=== PATIENT | female | born 1955 | race Caucasian/White ===

== ENCOUNTER → 2022-12-02 15:35 | Outpatient (REF) | payer BC, SELFPAY ==
--- NOTE | 2022-12-02 15:40 | CA_ITS ---
Transthoracic Echocardiogram Patient (Last, First, Middle): Joyce Pearles, Gender: Female Date of : 1955 Age: 67 Procedure Date: 12/02/2022 Procedure Type: Transthoracic Echocardiogram Location: [place] Height: 157.48 cm Weight: 68.04 kg BSA: 1.69 m2 Heart Rate: bpm BP: 122 / 66 mmHg Dairy Cattle Farm Manager: MARY Referring MD: Joseluis Velasquez RECRUITING ASSOCIATE Rib Puller: Efrain Martin MD Symptoms: R06.09 WEISS Study Quality: Good ECG Rhythm: Sinus Conclusions: - 1. Normal LV systolic function with grade 1 diastolic dysfunction 2. Normal cardiac valvular Doppler 3. Normal RV systolic pressure 4. Mildly dilated ascending aorta at 4 cm 5. No gross pericardial effusion Findings Left Ventricle Normal left ventricular size, thickness, and systolic function. The visually estimated ejection fraction is between 60-65%. Spectral Doppler is indicative of an impaired relaxation filling pattern. E/E prime ratio is <8, consistent with normal filling pressures. Evidence suggests grade I (mild) diastolic dysfunction. Peak GLS is -19.8%, which is within normal limits. Right Ventricle Normal right ventricular cavity size and systolic function. Atria Both atria are normal in size. There is no evidence of interatrial shunt. Aortic Valve There is mild thickening of the aortic valve. There is no aortic valve stenosis. There is no aortic valve regurgitation. Mitral Valve Normal mitral valve structure and function. There is trace mitral valve regurgitation. There is no mitral valve stenosis. Pulmonic Valve The pulmonic valve is likely normal. There is trace to mild pulmonic valve regurgitation. Tricuspid Valve Normal tricuspid valve structure. There is mild tricuspid valve regurgitation. The right ventricular systolic pressure is normal. The right ventricular systolic pressure is 29 mmHg. Normal right atrial pressure. There is no evidence of pulmonary hypertension. Great Vessels There is mild dilatation of the ascending aorta measuring 4.00 cm. The visualized portions of the pulmonary artery and branches are normal. Venous The inferior vena cava is normal in size and collapses greater than 50% with inspiration. Pericardium/Pleural There is no evidence of pericardial effusion. Prior Study Comparison No prior study available for comparison. Measurements 2D Linear Measurements IVSd: 1.14 0.6-0.9/0.6-1.0 cm LVIDd: 3.98 3.9-5.3/4.2-5.9 cm LVIDd Index: 2.36 2.4-3.2/2.2-3.1 cm/m2 LVIDs: 2.57 2.0-3.6 cm LVPWd: 1.13 0.7-1.1 cm Ao Root: 3.00 2.1-3.5 cm LA Diam: 3.60 2.7-3.8/3.0-4.0 cm LAIDs Index: 2.13 1.5-2.3 cm/m2 LV Mass: 188.34 67-162/88-224 g LV Mass Index: 111.44 43-95/49-115 g/m2 LVOT Diam: 2.20 3.0+(-)1.3 cm 2D Systolic Function EF 4C: 62.30 >55% EF 2C: 63.20 >55% EF BiP: 63.00 >55% Mitral Valve MV Pk E: 0.63 MV PK A: 0.80 MV Decel Time: 241.00 E/A: 0.80 E'Lateral: 8.59 E'Medial: 6.74 E/E' Med: 9.30 E/E' Lat: 7.30 PHT: 71.00 MVA PHT: 3.10 Decel [place]: 2.60 Aortic Valve AoV Pk Cb: 1.38 AoV Mn Cb: 1.01 AoV VTI: 0.39 AoV Pk Grad: 8.00 Aov Mn Grad: 5.00 CORAL Cont.VTI: 2.29 LVOT LVOT Pk Cb: 1.03 LVOT Mn Cb: 0.66 LVOT VTI: 0.24 LVOT Pk Grad: 4.00 LVOT Mn Grad: 2.00 LVOT Diam: 2.20 LVOT Area: 3.80 Diastolic Function MV Pk E: 0.63 MV Pk A: 0.80 E/A: 0.80 E'Medial: 6.74 E/E' Med: 9.30 E' Laterial: 8.59 E/E' Lat: 7.30 Right Ventricle TAPSE (mm): 26.00 TVS' Cb: 14.00 Tricuspid Valve TR Pk Cb: 2.54 TR Pk Grad: 26.00 RA Press: 3.00 RVSP: 29.00 Great Vessels Aorta Ao Root-2D: 3.00 2.0-3.7 cm Ao Asc: 4.00 2.1-3.4 cm Pulmonary Valve PV Pk Cb: 0.92 Peak PV Grad: 3.00 Updated in Other Vendor System with Status of Final Efrain Martin MD electronically signed on 12/03/2022 9:25:30 AM with status of Final
== END ==
LOC: HO.CARD 15:35
PROVIDERS: PCP Nurse Practitioner Primary Care; Visit Provider Nurse Practitioner Primary Care
DX: R06.09 Other forms of dyspnea (principal)
CPT/HCPCS: 93306; 93356

== ENCOUNTER → 2025-06-18 10:52 | Outpatient (REF) | payer MEDICARE, BC, SELFPAY ==
--- NOTE | 2025-06-18 10:56 | CA_ITS ---
Transthoracic Echocardiogram Patient (Last, First, Middle): Joyce Perales, Gender: Female Date of : 1955 Age: 70 Procedure Date: 06/18/2025 Procedure Type: Transthoracic Echocardiogram Location: [place] Height: 160.02 cm Weight: 70.31 kg BSA: 1.74 m2 Heart Rate: 54 bpm BP: 145 / 90 mmHg Astronautical Engineer: KRISTINE Perez MD: Joseluis Velasquez CARCASS SPLITTER Administrative Receptionist: Efrain Martin MD Symptoms: HTN Study Quality: Adequate ECG Rhythm: Bradycardia Conclusions: - 1. Normal LV ejection fraction at 60 65% with grade 1 diastolic dysfunction 2. Mildly dilated left atrium 3. Normal cardiac valvular Dopplers 4. Mildly dilated ascending aorta at 4.2 cm 5. Normal RV systolic pressure 6. No gross pericardial effusion Findings Left Ventricle Normal left ventricular size, thickness, and systolic function. The visually estimated ejection fraction is between 60-65%. Spectral Doppler is indicative of an impaired relaxation filling pattern. E/E prime ratio is <8, consistent with normal filling pressures. Evidence suggests grade I (mild) diastolic dysfunction. Right Ventricle Normal right ventricular cavity size and systolic function. Atria The left atrium is mildly dilated. There is no evidence of interatrial shunt. The right atrium is normal in size. Aortic Valve Normal aortic valve structure and function. There is no aortic valve stenosis. There is no aortic valve regurgitation. Mitral Valve Normal mitral valve structure and function. There is trace mitral valve regurgitation. There is no mitral valve stenosis. Pulmonic Valve The pulmonic valve is likely normal. There is trace to mild pulmonic valve regurgitation. Tricuspid Valve Normal tricuspid valve structure. There is trace tricuspid valve regurgitation. The right ventricular systolic pressure is not calculated. The right ventricular systolic pressure is 21 mmHg. Normal right atrial pressure. There is no evidence of pulmonary hypertension. Great Vessels The pulmonary artery was not well visualized. There is mild dilatation of the ascending aorta measuring 4.20 cm. Venous The inferior vena cava is normal in size and collapses greater than 50% with inspiration. Pericardium/Pleural There is no evidence of pericardial effusion. Measurements 2D Linear Measurements IVSd: 1.03 0.6-0.9/0.6-1.0 cm LVIDd: 4.55 3.9-5.3/4.2-5.9 cm LVIDd Index: 2.61 2.4-3.2/2.2-3.1 cm/m2 LVIDs: 2.48 2.0-3.6 cm LVPWd: 1.11 0.7-1.1 cm LA Diam: 3.60 2.7-3.8/3.0-4.0 cm LAIDs Index: 2.07 1.5-2.3 cm/m2 LV Mass: 213.43 67-162/88-224 g LV Mass Index: 122.66 43-95/49-115 g/m2 LVOT Diam: 2.00 3.0+(-)1.3 cm 2D Systolic Function EF 4C: 61.20 >55% EF 2C: 68.20 >55% EF BiP: 63.70 >55% Mitral Valve MV Pk E: 0.50 MV PK A: 0.70 MV Decel Time: 349.00 E/A: 0.70 E'Lateral: 8.05 E'Medial: 5.22 E/E' Med: 9.60 E/E' Lat: 6.20 PHT: 102.00 MVA PHT: 2.16 Decel [place]: 1.44 Aortic Valve AoV Pk Cb: 1.45 AoV Mn Cb: 1.00 AoV VTI: 0.32 AoV Pk Grad: 8.00 Aov Mn Grad: 5.00 CORAL Cont.VTI: 2.17 LVOT LVOT Pk Cb: 1.04 LVOT Mn Cb: 0.68 LVOT VTI: 0.22 LVOT Pk Grad: 4.00 LVOT Mn Grad: 2.00 LVOT Diam: 2.00 LVOT Area: 3.14 Diastolic Function MV Pk E: 0.50 MV Pk A: 0.70 E/A: 0.70 E'Medial: 5.22 E/E' Med: 9.60 E' Laterial: 8.05 E/E' Lat: 6.20 Right Ventricle TAPSE (mm): 21.90 TVS' Cb: 11.20 Tricuspid Valve TR Pk Cb: 2.10 TR Pk Grad: 18.00 RA Press: 3.00 RVSP: 21.00 Great Vessels Aorta Sinus of Valsalva: 3.10 2.0-3.5 cm Ao Asc: 4.20 2.1-3.4 cm Ao Arch: 3.60 Pulmonary Veins Pulm Vein S/D 1.50 Pulmonary Valve PV Pk Cb: 0.86 Peak PV Grad: 3.00 Updated in Other Vendor System with Status of Final Efrain Martin MD electronically signed on 06/19/2025 11:03:08 AM with status of Final
--- OUTSIDE RECORDS SUMMARY | 2025-06-18 13:01 | XMS_ITS | Encounter Summary ---
Author Organization [facility] Address [address] [place] [address] Phone Care Team Providers Care Air Gun Operator Name Role Phone Maddi Wang MD Unavailable [phone] Loraine Bradford MD Unavailable [phone] Terrell Guerra NP Unavailable Alana Schwartz MD Unavailable [phone] Joaquim Godoy MD Unavailable [phone] Bulmaro Scott MD Unavailable [phone] Joseluis Velasquez [facility] Primary Care Provider Encounter Details Date Type Department Care Team (Late Contact Info) Description 09/27/2018 Ancillary Orders [facility],Outside Imaging [address] [place], [place] [id number] System, Provider Not In, [place] [address] Social History Tobacco Use Types Packs/Day Years Used Date Smoking Tobacco: Never Smokeless Tobacco: Never Alcohol Use Standard Drinks/Week Comments Yes 0 (1 standard drink = 0.6 oz pur e alcohol) Occasionaly Comments No Sex and Gender Information Value Date Recorded Sex Assigned at Female 03/19/2021 4:05 PM EDT Legal Sex Female 9:52 PM EDT Gender Identity Not on file Sexual Orientation Straight 03/19/2021 4: 05 PM EDT Occupation Industry Job Start Date Job End Date [place] Not on file Not on file Not on file documented as of this encounter Plan of Treatment Upcoming Encounters Date Type Department Care Team (Late Contact Info) Description 11/13/2025 8:30 AM EDT Office Visit [facility] [address] 3rd Floor, [address] [place] [address] Sanjay Christy DO [address] [place] [address] [email or web address] documented as of this encounter Results * Mammogram Outside (No Interpretation) (07/16/2015 12:00 AM EST) Narrative SYSTEMGENERATED, DOCUMENTATION - 09/27/2018 9:11 AM EST This study is for PACS storage only and not for interpretation. us Provider Not In System PhD IMG OUTSIDE IMAGING W /OUT INTERPRETATION Final Result documented in this encounter Visit Diagnoses Not on filedocumented in this encounter Additional Health Concerns Infection Onset Date Last Indicated Resolved Time CoV-Exposed Comment:Recent close contact documented in the COVID-19 PCR/PRO order 03/28/2021 04/07/2021 04/12/2021 1:24 AM E DT Assessment Noted Time PHQ-2 Depression Total Score: 0 07/21/20 18 11:33 AM EST documented as of this encounter Care Teams Air Gun Operator Relationship Specialty Start Date End Date Joseluis Velasquez CNP [address] [place] [address], [address] [place] [address] PCP - General Family Medicine 07/21/18 Maddi Wang MD [address] [facility], [address] [place] [address] Historical LMR Provider 05/29/17 Loraine Bradford MD [address] [place] [address] [email or web address] Historical LMR Provider 05/29/17 08/16/21 Terrell Guerra NP [address] [place] [address] 2_[place] [address] [email or web address] Historical LMR Provider 05/29/17 08/16/21 Alana Schwartz MD [address] [place] [address], 2nd [place] [address] [email or web address] Historical LMR Provider 05/29/17 Joaquim Godoy MD [address] [facility], [address] [place] [address] Historical LMR Provider 05/29/17 08/16/21 Bulmaro Scott MD [address] [place] [address], [address] [place] [address] [email or web address] Historical LMR Provider 05/29/17 3 documented as of this encounter Additional Source Comments The information contained in this document represents components of the legal health record. It is not the complete legal health record.[facility]
--- OUTSIDE RECORDS SUMMARY | 2025-06-18 13:01 | XMS_ITS | Encounter Summary ---
Author Organization [facility] Address [address] [place] [address] Phone Care Team Providers Care Counter Pocket Trimmer Name Role Phone Maddi Wang MD Unavailable [phone] Loraine Bradford MD Unavailable [phone] Terrell Guerra NP Unavailable [phone] Alana Schwartz MD Unavailable [phone] Joaquim Godoy MD Unavailable [phone] Bulmaro Scott MD Unavailable [phone] Joseluis Velasquez LEAD ETL DEVELOPER Primary Care Provider Encounter Details Date Type Department Care Team (Latest Contact Info) Description 06/16/2019 Transcribe Orders [facility]le[facility] [address] [place], [place] [id number] Joseluis Velasquez, LEAD ETL DEVELOPER [address] [facility], [address] [place] [address] Annual physical exam; Essential hypertension Social History Tobacco Use Types Packs/Day Years [...] Encounters Date Type Department Care Team (Late st Contact Info) Description 11/13/2025 8:30 AM EDT Office Visit [facility] [address] [facility] [address] [facility] 3rd Floor, [address] [place] [address] Sanjay Christy, [address] [facility] [address] [place] [address] [email or web address] documented as of this encounter Procedures Procedure Name Priority Date/Time Associated Diagnosis Comments COMPREHENSIVE METABOLIC PANEL (CMP) Routine 06/16/2019 7:24 AM EST Annual physical exam Essential hypertension TSH WITH REFLEX Routine 06/16/2019 7:24 AM EST Annual physical exam Essential hypertension HC BLOOD COUNT COMPLETE AUTO&AUTO DIFRNTL WBC Routine 06/16/2019 7:24 AM EST Annual physical exam Essential hypertension LIPID PANEL Routine 06/16/2019 7:24 AM EST Annual physical exam Essential hypertension documented in this encounter Results * (ABNORMAL) CBC and differential (06/16/2019 7:24 AM EST) WBC 4.75 3.40 - 11.20 K/uL [facility] RBC 4.88(H) 3.80 - 4.80 M/uL [facility] HGB 14.8 12.0 - 15.0 g/dL [facility] HCT 43.6 36.0 - 46.0 % [facility] PLT 291 130 - 400 K/uL [facility] MCV 89.3 79.0 - 98.0 fL [facility] MCH 30.3 27.0 - 34.8 pg [facility] MCHC 33.9 31.5 - 36.0 g/dL [facility] RDW 12.2 10.8 - 14.6 % [facility] MPV 10.2 9.4 - 12.4 fl [facility] NRBC 0.00 0.00 /100 WBCs [facility] ABSOLUTE NRBC 0.00 0.00 K/uL [facility] DIFF METHOD Auto [facility] NEUTS 45.5 45.30 - 77.70 % [facility] LYMPHS 39.8(H) 12.30 - 39.70 % [facility] MONOS 10.7 4.10 - 12.80 % [facility] EOS 2.7 0 - 7.2 % [facility] BASOS 1.1 0 - 2.80 % [facility] Granulocytes, immature (%) 0.2 0.0 - 0.9 % [facility] ABSOLUTE NEUTS 2.16 1.40 - 7.70 K/uL [facility] ABSOLUTE LYMPHS 1.89 0.60 - 3.20 K/uL [facility] ABSOLUTE MONOS 0.51 0.11 - 0.59 K/uL [facility] ABSOLUTE EOS 0.13 0.01 - 0.50 K/uL [facility] ABSOLUTE BASOS 0.05 0.00 - 0.08 K/uL [facility] Granulocytes, immature 0.01 0.00 - 0.05 K/uL [facility] Blood 06/16/2019 7:24 AM EST 06/16/2019 7:25 AM EST us Joseluis Velasquez LEAD ETL DEVELOPER LAB BLOOD BKR ORDERABL ES Final Result [facility] [address] [place] [address] * (ABNORMAL) Comprehensive metabolic panel (06/16/2019 7:24 AM EST) SODIUM 140 133 - 146 mmol/L [facility] POTASSIUM 4.3 3.3 - 5.1 mmol/L [facility] CHLORIDE 98 96 - 108 mmol/L [facility] CO2 27 21 - 35 mmol/L [facility] BUN 20(H) 6 - 19 mg/dL [facility] CREATININE 0.60 0.5 - 1.5 mg/dL [facility] GLUCOSE 83 70 - 99 mg/dL [facility] ALBUMIN 4.8 3.9 - 4.8 g/dL [facility] TOTAL PROTEIN 8.1(H) 6.5 - 8.0 g/dL [facility] CALCIUM 10.5(H) 8.4 - 10.3 mg/dL [facility] ALKALINE PHOSPHATASE 75 39 - 117 U/L [facility] TOTAL BILIRUBIN 0.4 0.0 - 1.2 mg/dL [facility] AST 25 0 - 37 U/L [facility] ALT 17 0 - 40 U/L [facility] GLOBULIN 3.3 1 - 4.8 g/dL [facility] EGFR 98 >59 mL/min/1.7 3m2 [facility] Comment:If patient is black, multiply result by 1.159. Estimated glomerular filtration rate calculated using the CKD-EPI equation. ANION GAP 19 10 - 20 mmol/L [facility] Blood 06/16/2019 7:24 AM EST 06/16/2019 7:25 AM EST us Joseluis Velasquez LEAD ETL DEVELOPER LAB BLOOD BKR ORDERABL ES Final Result [facility] [address] [place] [address] * (ABNORMAL) Lipid panel (06/16/2019 7:24 AM EST) HDL 61 mg/dL [facility] Comment: Interpretation <40 mg/dL: Low HDL cholesterol (major risk factor for CHD) Greater than or equal to 60 mg/dL: High HDL cholesterol ( negative risk factor for CHD) HDL - cholesterol is affected by a number of factors, e.g. smoking, excerise, hormones, sex and age. CHOLESTEROL 191 0 - 240 mg/dL [facility] TRIGLYCERIDES 69 30 - 160 mg/dL [facility] LDL 116 50 - 129 mg/dL [facility] Comment: LDL levels in terms of risk for coronary heart disease: <100 mg/dL: Optimal 100-129 mg/dL: Near or above optimal 130-159 mg/dL: Borderline high 160-189 mg/dL: High >190 mg/dL: Very High CARDIAC RISK RATIO 3.1(L) 3.3 - 4.4 C [facility] Blood 06/16/2019 7:24 AM EST 06/16/2019 7:25 AM EST us Joseluis Velasquez LEAD ETL DEVELOPER LAB BLOOD BKR ORDERABL ES Final Result Performing Organization Address [facility] Co de Phone Number [address] [address] * TSH with reflex (06/16/2019 7:24 AM EST) TSH 2.22 0.27 - 4.20 uIU/mL [facility] Blood 06/16/2019 7:24 AM EST 06/16/2019 7:25 AM EST us Joseluis Velasquez LEAD ETL DEVELOPER LAB BLOOD BKR ORDERABL ES Final Result Performing Organization Address [facility] Co de Phone Number [address] [address] documented in this encounter Visit Diagnoses Diagnosis Annual physical exam Routine general medical examination at a health care facility Essential hypertension Unspecified essential hypertension documented in this encounter Additional Health Concerns Infection Onset Date Last Indicated Resolved Time CoV-Exposed Comment:Recent close contact documented in the COVID-19 PCR/PRO order 03/28/2021 04/07/2021 04/12/2021 1:24 AM E DT Assessment Noted Time PHQ-2 Depression Total Score: 0 07/21/20 18 11:33 AM EST documented as of this encounter Care Teams Counter Pocket Trimmer Relationship Specialty Start Date End Date VelasquezJoseluis CNP [address] [place] [address], [address] [address] [email or web address] PCP - General Family Medicine 07/21/18 Maddi Wang MD [address] [place] [address] Historical LMR Provider 05/29/17 Loraine Bradford MD [address] [place] [address] [email or web address] Historical LMR Provider 05/29/17 08/16/21 Terrell Guerra NP [address] [place] [address] 2_[place] [address] [email or web address] Historical LMR Provider 05/29/17 08/16/21 Alana Schwartz MD [address] [facility], 2nd [place] [address] [email or web address] Historical LMR Provider 05/29/17 Joaquim Godoy MD [address] [facility], [address] [place] [address] Historical LMR Provider 05/29/17 08/16/21 Bulmaro Scott MD [address] [facility] [place] [address] Historical LMR Provider 05/29/17 3 documented as of this encounter Additional Source Comments The information contained in this document represents components of the legal health record. It is not the complete legal health record.[facility]
--- OUTSIDE RECORDS SUMMARY | 2025-06-18 13:01 | XMS_ITS | Clinical Summary ---
Author Organization [facility] Address [address] [place] [id number] Phone Care Team Providers Care Utilization Review Specialist Name Role Phone Maddi Wang MD Unavailable [phone] Joseluis Little CNP Primary Care Provider Allergies Active Allergy Reactions Criticality Noted Date Comments Amlodipine Rash Low 01/12/2017 Hydrochlorothiazide Dizziness 04/19/2025 Lisinopril Rash Low 01/12/2017 Sulfa (Sulfonamide Antibiotics) Rash Low 01/2017 Medications cholecalciferol, vitamin D3, 25 mcg (1,000 unit) capsule Take 1 capsule by mouth daily. Active therapeutic multivitamin tablet Take 1 tablet by mouth daily. Active Medication-Free Text Apply 1 application topically. Hormone cream Active ZINC ORAL Take by mouth. Activ e albuterol 90 mcg/actuation inhalerIndicatio ns:Chronic cough Inhale 2 puffs into the lungs every 4 (four) hours as needed for wheezing. 6.7 g 1 3 Active Additional Information Patient not taking.Reported on 04/19/2025 triamcinolone acetonide 0.1 % cream Apply topically 2 (two) times a day. APPLY TO AFFECTED AREA 30 g 4 Active losartan (COZAAR) 25 MG tabletIndication s:Primary hypertension 25mg in AM and 50mg at bedtime 270 tablet 1 5 Active busPIRone (BUSPAR) 5 MG tabletIndication s:Generalized anxiety disorder TAKE 1 TABLET BY MOUTH THREE TIMES A DAY 270 tablet 3 Active Active Problems Problem Noted Date Diagnosed Date Aortic root dilatation 04/19/2025 Generalized anxiety disorder 04/19/2025 White coat syndrome with diagnosis of hypertensi on 04/19/2025 Diastolic dysfunction 04/19/2025 Eczema 09/19/2019 Hyperlipidemia 09/19/2019 Lichen sclerosus 09/19/2019 Osteoarthritis 09/19/2019 Overweight (BMI 25.0-29.9) 09/19/2019 Breast hypertrophy in female 06/19/2019 Lymphocytosis 10/28/2017 Primary hypertension 10/28/2017 Encounters Date Type Department Care Team Description 06/11/2025 7:40 AM EST - 06/11/2025 11:59 PM EST Hospital Encounter [facility], Bone Density - [address] [address] Joseluis Little CNP Discharge Disposition: Home or Self Care 05/12/[address] [place] [address] Joseluis Little CNP Med Change Request 04/19/2025 9:00 AM EDT Office Visit [address] [place] [address] Joseluis Little CNP Primary hypertension (Primary Dx); Generalized anxiety disorder; Diastolic dysfunction; Aortic root dilatation; White coat syndrome with diagnosis of hypertension from Last 3 Months Immunizations Immunization Administration Dates Next Due COVID-19 (Pre-05/31) Moderna Vaccine, mRNA, PF 06/27/2021,09/05/2020,08/07/2020 [id number] FORMULATION 06/28/2009 Influenza Quadrivalent w/ Preservative IM 2017 Influenza, Unspecified Formulation 05/09/2022, Td (adult),2 Lf Tetanus Toxo id, PF, Adsorbed 03/07/2019 Tdap 01/09/2009 Zoster recombinant 12/04/2021,08/07/2021 Family History Medical History Relation Comments Hyperlipidemia Father Other Father HBP Pancreatic cancer Father sepsis Father Heart attack Maternal Grandfather Stroke Maternal Grandmother during the of her last child (30) Coronary artery disease Mother Diabetes Mother Heart attack Mother Heart failure Mother Other Mother HBP Alcohol abuse Paternal Grandfather Severe ETOH Uterine cancer Paternal Grandmother dx age 68 Neuropathy Sister 1 Pancreatic cancer Sister 1 78 Other Unspecified GM: CA Breast cancer Neg Hx Relation Status Comments Father Maternal Grandfather Maternal Grandmother Mother Paternal Grandfather Paternal Grandmother Sister 1 Sister 2 Alive Son Alive Unspecified Social History Tobacco Use Types Packs/Day Years Used Date Smoking Tobacco: Never Smokeless Tobacco: Never Tobacco Cessation:Counseling Given: Not Answered Alcohol Use Standard Drinks/Week Comments Not Currently 0 (1 standard drink = 0.6 oz pur e alcohol) Rare Child or Family Care Answer Date Record ed Do you have problems with on e of the following making it difficult for you to work, study, or receive health care? No 10/21/2023 Education Answer Date Recorded Are you interested in more education? Not on andre e 08/12/2024 Are you concerned about learning? Not on file 08/12/2024 No 08/12/2024 No 08/12/2024 Food Answer Date Recorded Within the past 6 months we worried whether our food would run out before we got money to buy more. Never True 10/21/2023 Within the past 6 months the food we bought just didn't last and we didn't have enough money to get more. Never True Residential Stability Answer Date Recor ded What is your housing situation today? I have robi navarrete 10/21/2023 How many times have you move d in the past 12 months? Zero (I did not move) 10/21/2023 Paying for Meds Answer Date Recorded Do you have trouble paying for medicines? No 10/21/2023 Paying Utility Bills Answer Date Record ed Do you have trouble paying your heating or elect ricity bill? No 10/21/2023 Transportation Answer Date Recorded Has the lack of transportati on kept you from medical appointments or from getting medications? No 10/21/2023 Unemployment Answer Date Recorded Are you currently unemployed or working on a part-time or temporary basis, and looking for work? No 08/11/2022 Digital Access Answer Date Recorded No 10/21/2023 Yes 10/21/2023 Do you have reliable internet access at home? Ye s 10/21/2023 Do you have a device (e.g., phone, tablet, computer) with a working camera? Yes 10/21/2023 Intimate Partner Violence Answer Date R ecorded Denied Basic Needs Not on file 10/24/2024 In the past 12 months have y ou been in a relationship with a person who hurts, threatens, or tries to control you? No 10/24/2024 Worried food would run out Not on file 10/24 In the past 12 months have y ou been in a relationship with a person who hurts, threatens, or tries to control you? No 10/24/2024 Comments No Sex and Gender Information Value Date Recorded Sex Assigned at Female 03/19/2021 4:05 PM EDT Legal Sex Female 9:52 PM EDT Gender Identity Not on file Sexual Orientation Straight 03/19/2021 4: 05 PM EDT Occupation Industry Job Start Date Job End Date [employer] Not on file Not on file Not on file Last Filed Vital Signs Vital Sign Reading Time Taken Comments Blood Pressure 140/80 04/19/2025 9:28 AM EDT Pulse 58 04/19/2025 8:47 AM EDT w BP Machine Temperature 36.7 C (98.1 F) 04/19/2025 8:43 AM EDT Respiratory Rate 16 10/04/2019 5:15 PM EST Oxygen Saturation 98% 04/19/2025 8:43 AM EDT Inhaled Oxygen Concentration - - Weight 69.4 kg (153 lb) 04/19/2025 8:43 AM EDT Height 158.5 cm (5' 2.4 ) 04/19/2025 8:43 AM EDT Body Mass Index 27.63 04/19/2025 8:43 AM EDT Plan of Treatment Upcoming Encounters Date Type Department Care Team (Late st Contact Info) Description 11/13/2025 8:30 AM EDT Office Visit [facility] [address]rd [address], [address] [place] [address] Sanjay Christy, [address] [place] [id number] Health Maintenance Due Date Last Done Comments FIT TEST 2002 FOBT 2002 SIGMOIDOSCOPY 2002 VIRTUAL COLONOSCOPY 2002 PNEUMOCOCCAL VACCINES (50+ years) (1 of 1 - PCV) 2007 COLONOSCOPY 12/17/2021 12/18/2011 INFLUENZA VACCINE (#1) 2025 , 06/09/2021, 06/10/2018, Additional history exists COVID-19 VACCINE ( season) 2025 06/27/2021, 09/05/2020, 08/07/2020 COLOGUARD 08/21/2025 08/21/2022 COLORECTAL CANCER SCREENING 08/21/2025 BLOOD PRESSURE 10/17/2025 04/19/2025 DEPRESSION SCREENING 10/24/2025 10/24/2024 CREATININE LEVEL 11/07/2025 11/07/2024, , 08/24/2022, Additional history exists POTASSIUM LEVEL 11/07/2025 11/07/2024, 10/07, 08/24/2022, Additional history exists LIPID PANEL 03/20/2026 03/20/2021, 03/2019, 01/07/2017 MAMMOGRAM 06/19/2026 06/19/2024, 01/07, 09/27/2019, Additional history exists PAP SMEAR 08/11/2027 08/11/2022, 07/09, 07/21/2018 SCREENING FOR DIABETES 11/08/2027 11/07/2024 Adult Td,Tdap Booster 03/07/2029 03/07/2019, 009 RSV VACCINE (1 - 1-dose 75+ series) 2032 HEPATITIS C SCREENING Completed 03/20/2021 ZOSTER VACCINES Completed 12/04/2021, 08/07/2021 SMOKING STATUS SCREENING (Once After 26 Yrs) Completed 04/19/2025 OSTEOPOROSIS SCREENING INITIAL (ONE-TIME) Completed 06/11/2025, 09/26/2018 HEPATITIS A VACCINES Aged Out No long er eligible based on patient's age to complete this topic HIB VACCINES Aged Out No longer eligi ble based on patient's age to complete this topic MENINGOCOCCAL VACCINES (ACWY) Aged Out No longer eligible based on patient's age to complete this topic MENINGOCOCCAL VACCINES (B) Aged Out N o longer eligible based on patient's age to complete this topic Medical Devices Not on file Procedures Procedure Name Priority Date/Time Associated Diagnosis Comments BD DXA AXIAL (SPINE) WITH HIP Routine 06/11/2025 7:55 AM EST Estrogen deficiency COMPREHENSIVE METABOLIC PANEL (CMP) Routine 11/07/2024 8:19 AM EDT Essential hypertension BI MAMMOGRAM SCREENING WITH TOMOSYNTHESIS WITH CAD (BILATERAL) Routine 06/19/2024 12:58 PM EST Encounter for screening mammogram for malignant neoplasm of breast PAP TEST Routine 08/11/2022 12:00 AM EST LIPID PANEL Routine 03/20/2021 11:27 AM EDT Pure hypercholesterolemia HEPATITIS C ANTIBODY, QUALITATIVE Routine 03/20/2021 11:27 AM EDT Need for hepatitis C screening test from Last 3 Months or Most Recently Relevant to Health Maintenance Results * BD DXA AXIAL (SPINE) WITH HIP (06/11/2025 7:55 AM EST) Anatomical Region Laterality Modality Bone Density Bone Density 06/11/2025 7:54 AM EST Impressions 06/12/2025 8:19 AM EST Interpretation: Osteopenia. Narrative 06/12/2025 8:19 AM EST Referred By: JOSELUIS LITTLE Indications: Estrogen Deficiency Scanner: Blackwave A with serial# of [id number] located at [facility] Bone Density Scan (DXA) 06/11/25 Details of prior DXA scans are available by clicking View Full Report BMD T- Z- Skeletal Site gm/cm2 score score BMD Change Since Prior Scan ------ ----- ----- PA Spine (L1 L3 L4) 0.863 -1.70 0.30 -0.012 (stable) since 09/26/2018 Total Hip (Right) 0.842 -0.80 0.60 -0.022 (stable) since 09/26/2018 Femoral Neck (Right) 0.703 -1.30 0.40 -0.030 (-4.1%)* since 09/26/2018 ------ ----- ----- * Denotes significant change when >= 0.022 g/cm2 for the spine, 0.027 g/cm2 for the total hip, 0.029 g/cm2 for the femoral neck. Interpretation: Osteopenia. Technical Quality: Imaging of all sites was of adequate quality.NOTE: We newly excluded one or more vertebrae. To allow comparisons with prior tests, we recalculated the total BMD of all prior spine tests after excluding the same vertebra(e). FRAX: A FRAX(r) score was not calculated because the patient indicated use of osteoporosis medication within the past 12 months. Reviewed By: Melvin Perales MD on 06/12/2025 08:19:10 Additional Information: -World Health Organization criteria classify adults based on lowest T-score at PA spine, hip or forearm: Normal (T-score >= -1.0), Osteopenia (T-score between -1 and -2.5), or Osteoporosis (T-score <= -2.5). At [facility], T-scores are compared to peak bone density of a young white gender matched reference population. - For premenopausal women and men under the age of 50, Z-scores (comparison to age, gender, and ethnicity matched reference population) are used: Above expected range for age (Z-score >= 2.0), Within expected range of age (Z-score 1.9 to -1.9), or Below expected range for age (Z-score <= -2.0). - The Bone Health and Osteoporosis Foundation recommends that treatment be considered in men aged more than 50 years and in postmenopausal women with ANY of the following: Prior hip or vertebral fractures; T-score of <= -2.5 at the PA spine or hip; or 10 year fracture probability by FRAX of >= 3% for the hip or >= 20% for major osteoporotic fracture. - The FRAX algorithm (https://www.km.ac.uk/FRAX/tool.aspx) is designed to predict 10-year fracture risk in treatment-naive adults between the ages of 40 and 90. It is not intended to be used in those receiving pharmacologic osteoporosis treatment. - The TBS is derived from the texture of the DXA spine image and has been shown to be related to bone microarchitecture and fracture risk. This data provides information independent of BMD value. It adds to fracture risk assessment with a FRAX adjusted for TBS score. If your patient had a TBS and qualified for a FRAX score, the reported FRAX score has been adjusted for TBS. TBS Score Interpretation 1.350 and greater Normal bone microarchitecture 1.200 to 1.350 Partially degraded bone microarchitecture 1.200 and less Degraded bone microarchitecture - Including race/ethnicity in the generation of T- or Z-scores or in the FRAX calculation is complicated, and currently undergoing active review to ensure that we can give patients the best information on their risk of fracture. - Some prior studies may not be compatible with our comparison software. - Click on View Full Report to see subsequent pages with images and prior bone density results. Procedure Note Melvin Perales MD - 06/12/2025 Referred By: JOSELUIS LITTLE Indications: Estrogen Deficiency Scanner: Blackwave A with serial# of [id number] located at [facility] Bone Density Scan (DXA) 06/11/25 Details of prior DXA scans are available by clicking View Full Report BMD T- Z- Skeletal Site gm/cm2 score score BMD Change Since Prior Scan ------ ----- PA Spine (L1 L3 L4) 0.863 -1.70 0.30 -0.012 (stable) since09/26/2018 Total Hip (Right) 0.842 -0.80 0.60 -0.022 (stable) since09/26/2018 Femoral Neck (Right) 0.703 -1.30 0.40 -0.030 (-4.1%)* since09/26/2018 ------ ----- * Denotes significant change when >= 0.022 g/cm2 for the spine, 0.027g/cm2 for the total hip, 0.029 g/cm2 for the femoral neck. Interpretation: Osteopenia. Technical Quality: Imaging of all sites was of adequate quality.NOTE: We newly excluded one or more vertebrae. To allow comparisons with priortests, we recalculated the total BMD of all prior spine tests after excluding the same vertebra(e). FRAX: A FRAX(r) score was not calculated because the patient indicated use of osteoporosis medication within the past 12 months. Reviewed By: Melvin Perales MD on 06/12/2025 08:19:10 Additional Information: -World Health Organization criteria classify adults based on lowestT-score at PA spine, hip or forearm: Normal (T-score >= -1.0), Osteopenia (T-score between -1 and -2.5), or Osteoporosis (T-score <= -2.5). At [facility], T-scores are compared to peak bone density of a young white gender matched reference population. - For premenopausal women and men under the age of 50, Z-scores(comparison to age, gender, and ethnicity matched reference population) are used:Above expected range for age (Z-score >= 2.0), Within expected range of age (Z-score 1.9 to -1.9), or Below expected range for age (Z-score <= -2.0). - The Bone Health and Osteoporosis Foundation recommends that treatment be considered in men aged more than 50 years and in postmenopausal women with ANY of the following: Prior hip or vertebral fractures; T-score of <= -2.5 at the PA spine or hip; or 10 year fracture probability by FRAX of >= 3%for the hip or >= 20% for major osteoporotic fracture. - The FRAX algorithm (https://www.km.ac.uk/FRAX/tool.aspx) is designed to predict 10-year fracture risk in treatment-naive adultsbetween the ages of 40 and 90. It is not intended to be used in those receiving pharmacologic osteoporosis treatment. - The TBS is derived from the texture of the DXA spine image and has been shown to be related to bone microarchitecture and fracture risk. This data provides information independent of BMD value. It adds to fracture risk assessment with a FRAX adjusted for TBS score. If your patient had a TBSand qualified for a FRAX score, the reported FRAX score has been adjusted for TBS. TBS Score Interpretation 1.350 and greater Normal bone microarchitecture 1.200 to 1.350 Partially degraded bone microarchitecture 1.200 and less Degraded bone microarchitecture - Including race/ethnicity in the generation of T- or Z-scores or in the FRAX calculation is complicated, and currently undergoing active review to ensure that we can give patients the best information on their risk of fracture. - Some prior studies may not be compatible with our comparison software. - Click on View Full Report to see subsequent pages with images andprior bone density results. IMPRESSION: Interpretation: Osteopenia. us Joseluis Little ONCOLOGY REP IMG BD BONE DENSITY DE XA Final Result * (ABNORMAL) Comprehensive metabolic panel (11/07/2024 8:19 AM EDT) SODIUM 138 133 - 146 mmol/L [facility] POTASSIUM 4.4 3.3 - 5.1 mmol/L [facility] CHLORIDE 100 96 - 108 mmol/L [facility] CO2 28 21 - 35 mmol/L [facility] BUN 27(H) 6 - 19 mg/dL [facility] CREATININE 0.90 0.5 - 1.5 mg/dL [facility] GLUCOSE 98 70 - 99 mg/dL [facility] ALBUMIN 4.6 3.9 - 4.8 g/dL [facility] TOTAL PROTEIN 7.9 6.5 - 8.0 g/dL [facility] CALCIUM 10.1 8.4 - 10.3 mg/dL [facility] ALKALINE PHOSPHATASE 83 39 - 117 U/L [facility] TOTAL BILIRUBIN 0.3 0.0 - 1.2 mg/dL [facility] AST 26 0 - 37 U/L [facility] ALT 18 0 - 40 U/L [facility] GLOBULIN 3.3 1 - 4.8 g/dL [facility] EGFR 70 >59 mL/min/1.7 3m2 [facility] Comment:Estimated glomerular filtration rate calculated using the CKD-EPI refit equation. ANION GAP 14 10 - 20 mmol/L [facility] Blood 11/07/2024 8:19 AM EDT 11/07/2024 8:23 AM EDT us Joseluis Little ONCOLOGY REP LAB BLOOD BKR ORDERABL ES Final Result [address] [address] * BI MAMMOGRAM SCREENING WITH TOMOSYNTHESIS WITH CAD (BILATERAL) (06/19/2024 12:58 PM EST) Anatomical Region Laterality Modality Breast Left, Breast Right, Breast Bilateral Bila teral Mammography 06/19/2024 3:28 PM EST Impressions 06/19/2024 3:29 PM EST No mammographic evidence of malignancy in either breast. Annual screening mammography is recommended. BI-RADS 2 BENIGN The patient will be notified of the results and recommendations. Narrative 06/19/2024 3:29 PM EST BI MAMMOGRAM SCREENING WITH TOMOSYNTHESIS WITH CAD (BILATERAL) Additional patient information: Screening. COMPARISON: Comparison is made with relevant prior imaging. Breast composition: There are scattered areas of fibroglandular density. FINDINGS: Previous reduction mammoplasty. There has been no change in the mammographic findings since previous examination. No abnormal masses, suspicious calcifications, or other significant findings are identified mammographically in either breast. Procedure Note Samaria Johnson MD - 06/19/2024 BI MAMMOGRAM SCREENING WITH TOMOSYNTHESIS WITH CAD (BILATERAL) Additional patient information: Screening. COMPARISON: Comparison is made with relevant prior imaging. Breast composition: There are scattered areas of fibroglandular density. FINDINGS: Previous reduction mammoplasty. There has been no change in themammographic findings since previous examination. No abnormal masses, suspicious calcifications, or other significantfindings are identified mammographically in either breast. IMPRESSION: No mammographic evidence of malignancy in either breast. Annual screening mammography is recommended. BI-RADS 2 BENIGN The patient will be notified of the results and recommendations. us Joseluis Little ONCOLOGY REP IMG MG EXAMS Final Result * Pap Test (08/11/2022 12:00 AM EST) 08/11/2022 08/12/2022 9:5 4 AM EST Narrative SEE NARRATIVE - 08/17/2022 3:34 PM EST [address] [address] [employer]where Maker: Jessica Cobb MD PHYSICIAN RELATIONS SPECIALIST Cytology Report FINAL DIAGNOSIS A. PAP SMEAR (SUREPATH) CE: SPECIMEN ADEQUACY: Satisfactory for evaluation; transformation zone absent/insufficient. INTERPRETATION: NEGATIVE FOR INTRAEPITHELIAL LESION OR MALIGNANCY. Parakeratosis Electronically Signed Out By: LICO Gutiérrez MD(ASCP) By his/her signature above, the pathologist listed as making the Final Diagnosis certifies that he/she has personally reviewed this case and confirmed or corrected the diagnosis. The Pap test is a screening test primarily for squamous cancers and precursors and has associated false-negative and false-positive results. New technologies such as liquid-based preparations may decrease but will not eliminate all false-negative results. Regular sampling and follow-up of unexplained clinical signs and symptoms are recommended to minimize false negative results. PROCEDURES/ADDENDA HPV Testing (Requested) Ordered Date: 08/12/2022 A. PAP SMEAR (SUREPATH) CE: Human Papilloma Virus Test NEGATIVE for high-risk Human Papilloma Virus types 16, 18, 45 and the Other high risk probe set (Includes 31, 33, 35, 39, 51, 52, 56, 58, 59, 66, 68) Note: Testing performed by [employer] HR-HPV analysis. Clinical correlation is advised. This HPV test was performed at [facility], [address] [place] [address]. This test has been FDA approved for [employer] cervical cytology specimens. The accuracy and precision of this test for all other specimen sources has been verified in the Cytopathology Laboratory of the [facility] and has not been cleared or approved by the U.S. Food and Drug Administration. Clinical correlation is advised. CLINICAL HISTORY Date of Last Menstrual Period: Not Provided Menstrual History: Post Menopausal Other Clinical Conditions: Screening Pap SPECIMEN SOURCE A: PAP SMEAR (SUREPATH) CE Patient Name: KAVON PERALES : 1955 (Age: 67) Sex: F Institution: [facility] Location: [facility] Date of Collection: 08/11/2022 Date of Reported: 08/17/2022 15:34 Results to: Joseluis Little [employer]AL [employer]ER Joseluis Little ONCOLOGY REP CYTOLOGY ORDERABLES Fi nal Result SEE NARRATIVE * Hepatitis C antibody, qualitative (03/20/2021 11:27 AM EDT) HCV NON-REACTIV E NON-REACTI VE [facility] Blood 03/20/2021 11:2 7 AM EDT 03/20/2021 11:35 AM EDT Joseluis Little [facility] LAB BLOOD BKR ORDERABL ES Final Result Performing Organization Address [facility]/ZIP Co de Phone Number [address] [address] * (ABNORMAL) Lipid panel (03/20/2021 11:27 AM EDT) HDL 70 mg/dL [facility] Comment: Interpretation <40 mg/dL: Low HDL cholesterol (major risk factor for CHD) Greater than or equal to 60 mg/dL: High HDL cholesterol ( negative risk factor for CHD) HDL - cholesterol is affected by a number of factors, e.g. smoking, excerise, hormones, sex and age. CHOLESTEROL 212 0 - 240 mg/dL [facility] TRIGLYCERIDES 78 30 - 160 mg/dL [facility] LDL 126 50 - 129 mg/dL [facility] Comment: LDL levels in terms of risk for coronary heart disease: <100 mg/dL: Optimal 100-129 mg/dL: Near or above optimal 130-159 mg/dL: Borderline high 160-189 mg/dL: High >190 mg/dL: Very High CARDIAC RISK RATIO 3.0(L) 3.3 - 4.4 C [facility] Blood 03/20/2021 11:2 7 AM EDT 03/20/2021 11:35 AM EDT Joseluisnena Rey Ron [facility] LAB BLOOD BKR ORDERABL ES Final Result Performing Organization Address [facility] Co de Phone Number [address] [address] from Last 3 Months or Most Recently Relevant to Health Maintenance Insurance [facility] FEDERAL MEDICARE PART A & B MEDICARE PART A & [place] A [place] [id number] [place] [address] MEDICARE PART A & B MEDICARE PART A & B MEDICARE PART A & B Advance Directives For more information, please contact: [phone] (9AM - 5PM [facility], Wednesday-Wednesday) Documents on File Type Date Recorded 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 Healthcare Proxy 10/05/2019 4:33 PM * Full Code (Presumed) (Latest Code Status on File) Date Activated Date Inactivated Comments 10/04/2019 9:47 AM 10/04/2019 7:58 PM Care Teams Utilization Review Specialist Relationship Specialty Start Date End Date Joseluis Little, MALIKA [address] [place] [address] [email or web address] PCP - General Family Medicine 07/21/18 Maddi Wang MD [address] [place] [address] [email or web address] Historical LMR Provider 05/29/17 Additional Source Comments The information contained in this document represents components of the legal health record. It is not the complete legal health record.[facility]
--- OUTSIDE RECORDS SUMMARY | 2025-06-18 13:01 | XMS_ITS | Encounter Summary ---
Author Organization [facility] Address [address] [facility] [address] [place] [address] Phone Care Team Providers Care Hiv Prevention Specialist Name Role Phone Maddi Wang MD Unavailable [phone] Loraine Bradford MD Unavailable [phone] Terrell Guerra NP Unavailable Alana Schwartz MD Unavailable [phone] Joaquim Godoy MD Unavailable [phone] Bulmaro Scott MD Unavailable [phone] Joseluis Velasquez [facility] Primary Care Provider Encounter Details Date Type Department Care Team (Late st Contact Info) Description 10/04/2019 Procedure Pass OR Admitting Dept - [facility] Department [address] [place] [address] Social History Tobacco Use Types Packs/Day Years Used Date Smoking Tobacco: Never Smokeless Tobacco: Never Alcohol Use Standard Drinks/Week Comments Yes 0 (1 standard drink = 0.6 oz pur e alcohol) Rare Comments No Sex and Gender Information Value [...] Description 11/13/2025 8:30 AM EDT Office Visit [facility] [address] [place] [address] [address]rd Floor, [address] [place] [address] Sanjay Christy DO [address] [facility] [address] [place] [address] [email or web address] documented as of this encounter Visit Diagnoses Not on filedocumented in this encounter Additional Health Concerns Infection Onset Date Last Indicated Resolved Time CoV-Exposed Comment:Recent close contact documented in the COVID-19 PCR/PRO order 03/28/2021 04/07/2021 04/12/2021 1:24 AM E DT Assessment Noted Time PHQ-2 Depression Total Score: 0 09/19/19 3:30 PM EST documented as of this encounter Care Teams Hiv Prevention Specialist Relationship Specialty Start Date End Date Joseluis Velasquez CNP [address] [facility] [place] [address] [email or web address] PCP - General Family Medicine 07/21/18 Maddi Wang MD [address] [facility] [place] [address] [email or web address] Historical LMR Provider 05/29/17 Loraine Bradford MD [address] [place] [address] [email or web address] Historical LMR Provider 05/29/17 08/16/21 Terrell Guerra NP [address] [place] [address] 2_[place] [address] [email or web address] Historical LMR Provider 05/29/17 08/16/21 Alana Schwartz MD [address] [facility], 2nd [place] [address] Historical LMR Provider 05/29/17 Joaquim Godoy MD [address] [place] [address], [address] [place] [address] Historical LMR Provider 05/29/17 08/16/21 Bulmaro Scott MD [address] [place] [address], [address] [place] [address] [email or web address] Historical LMR Provider 05/29/17 3 documented as of this encounter Additional Source Comments The information contained in this document represents components of the legal health record. It is not the complete legal health record.[facility]
--- OUTSIDE RECORDS SUMMARY | 2025-06-18 13:01 | XMS_ITS | Encounter Summary ---
Author Organization [facility] Address [address] [place] [address] Phone Care Team Providers Care Press Assistant Name Role Phone Maddi Wang MD Unavailable [phone] Joseluis Velasquez CNP Primary Care Provider Encounter Details Date Type Department Care Team (Late st Contact Info) Description 10/21/2023 Procedure Pass [facility], [address] [address] Social History Tobacco Use Types Packs/Day Years Used Date Smoking Tobacco: Never Smokeless Tobacco: Never Alcohol Use Standard Drinks/Week Comments Not Currently 0 (1 standard drink = 0.6 oz pur e alcohol) Rare Child or Family Care Answer Date Record ed Do you have problems with on e of the following making it difficult for you to work, study, or receive health care? No 10/21/2023 Education Answer Date Recorded Are you interested in help w ith more adult education (for example, completing high school, GED, job training, learning the Micronesian language, technical skills, or developing parenting skills)? No 08/11/2022 Food Answer Date Recorded Within the past [...] your housing situation today? I have robi sing 10/21/2023 How many times have you move [...] ecorded Denied Basic Needs Not on file 10/21/2023 In the past 12 months have y ou been in a relationship with a person who hurts, threatens, or tries to control you? No 10/21/2023 Worried food would run out Not on file 10/20 In the past 12 months have y ou been in a relationship with a person who hurts, threatens, or tries to control you? No 10/21/2023 Comments No Sex and Gender Information Value [...] Description 11/13/2025 8:30 AM EDT Office Visit [facility] [address] [place] [address] [address]rd Floor, [address] [place], [place] [id number] Sanjay Christy DO [address] [facility] [address] [place] [address] documented as of this encounter Visit Diagnoses Not on filedocumented in this encounter Additional Health Concerns Assessment Noted Time PHQ-2 Depression Total Score: 2 10/21/19 24 10:42 AM EDT documented as of this encounter Care Teams Press Assistant Relationship Specialty Start Date End Date Joseluis Velasquez CNP [address] [place] [address], [address] [place] [address] [email or web address] PCP - General Family Medicine 07/21/18 Maddi Wang MD [address] [place] [address], [address] [place] [address] [email or web address] Historical LMR Provider 05/29/17 documented as of this encounter Additional Source Comments The information contained in this document represents components of the legal health record. It is not the complete legal health record.[facility]
--- OUTSIDE RECORDS SUMMARY | 2025-06-18 13:02 | XMS_ITS | Encounter Summary ---
Author Organization [facility] Address [address] [facility] [address] [address] [place] [address] Phone Care Team Providers Care Fence Gate Assembler Name Role Phone Maddi Wang MD Unavailable [phone] Loraine Bradford MD Unavailable [phone] Terrell Guerra NP Unavailable Alana Schwartz MD Unavailable [phone] Joaquim Godoy MD Unavailable [phone] Bulmaro Scott MD Unavailable [phone] Joseluis Velasquez [employer] DELIVERY CLERK Primary Care Provider Encounter Details Date Type Department Care Team (Late st Contact Info) Description 08/07/2021 Procedure Pass [facility], [address] [address] Social History Tobacco Use Types Packs/Day Years [...] work, study, or receive health care? No 06/13/2021 Education Answer Date Recorded Are you interested in help w ith more adult education (for example, completing high school, GED, job training, learning the Swedish language, technical skills, or developing parenting skills)? No 06/13/2021 Are you concerned about learning? Not on file 06/13/2021 Not on file 06/13/2021 Not on file 06/13/2021 Food Answer Date Recorded Within the past 6 months we worried whether our food would run out before we got money to buy more. Never True 06/13/2021 Within the past 6 months the food we bought just didn't last and we didn't have enough money to get more. Never True Paying for Meds Answer Date Recorded Do you have trouble paying for medicines? No 06/13/2021 Paying Utility Bills Answer Date Record ed Do you have trouble paying your heating or elect ricity bill? No 06/13/2021 Transportation Answer Date Recorded Has the lack of transportati on kept you from medical appointments or from getting medications? No 06/13/2021 Comments No Sex and Gender Information Value [...] Description 11/13/2025 8:30 AM EDT Office Visit [facility] [address] [place] [address] [address]rd Floor, [address] [place] [address] Sanjay Christy DO [address] [facility] [address] [place] [address] [email or web address] documented as of this encounter Visit Diagnoses Not on filedocumented in this encounter Additional Health Concerns Assessment Noted Time PHQ-2 Depression Total Score: 0 08/07/20 21 2:14 PM EST documented as of this encounter Care Teams Fence Gate Assembler Relationship Specialty Start Date End Date Joseluis Velasquez CNP [address] [place] [address], [address] [place] [address] PCP - General Family Medicine 07/21/18 Maddi Wang MD [address] [place] [address], [address] [place] [address] Historical LMR Provider 05/29/17 Loraine Bradford MD [address] [place] [address] [email or web address] Historical LMR Provider 05/29/17 08/16/21 Terrell Guerra NP [address] [place] [address] [facility] [address] [email or web address] Historical LMR Provider 05/29/17 08/16/21 Alana Schwartz MD [address] [facility], 2nd [place] [address] [email or web address] Historical LMR Provider 05/29/17 Joaquim Godoy MD [address] [facility], [address] [place] [address] Historical LMR Provider 05/29/17 08/16/21 Bulmaro Scott MD [address] [place] [address], [address] [place] [address] Historical LMR Provider 05/29/17 3 documented as of this encounter Additional Source Comments The information contained in this document represents components of the legal health record. It is not the complete legal health record.[facility]
== END ==
LOC: HO.CARD 10:52
PROVIDERS: PCP Nurse Practitioner Primary Care; Visit Provider Nurse Practitioner Primary Care
DX: I10 Essential (primary) hypertension (principal)
CPT/HCPCS: 93306

== ENCOUNTER → 2025-06-18 10:56 | Outpatient (BNV) | payer MEDICARE, BC, SELFPAY | PROVIDERS: PCP Nurse Practitioner Primary Care; Visit Provider Internal Medicine Cardiovascular Disease | DX: I51.7 Cardiomegaly (principal); I77.810 Thoracic aortic ectasia | CPT/HCPCS: 93306 ==